=== PATIENT | male | born 1965 | race Caucasian/White ===

== ENCOUNTER 2023-05-12 13:06 | Inpatient (IN) | payer SELFPAY ==
[2023-05-12] VITALS (7 sets, daily range): BP systolic 144–178; BP diastolic 75–97; PULSE 64–67; RESP 16–20; O2SAT 94–98
[~2023-05-12] VITALS: Ht 182.9 cm; Wt 140.9 kg
[~2023-05-12 13:06] MED LIST: NORepinephrine bitart. inj. IV ONE; albumin (human) 25% 100 ML IV solution IV ONE; aminocaproic acid 250 MG/1 ML inj. ONE; calcium chloride 100 MG/1 ML inj IV ONE; heparin 1,000 units/ml 10ml inj ONE; heparin 10,000 units/1 ML INJ ONE; magnesium sulf 1 GM/2 ML ONE; mannitol 12.5gm/50mL VIAL IV ONE; methylPREDNISolone sod. succ. 500mg inj ONE; sodium bicarbonate (8.4%) 1 mEq/ml syringe ONE
[2023-05-12 14:03] LABS: BASOPHILS # (AUTO) 0.1 X10'3 (0-0.2); BASOPHILS % (AUTO) 0.8 % (0-1); EOSINOPHILS # (AUTO) 0.3 X10'3 (0-0.9); EOSINOPHILS % (AUTO) 4.4 % (0-6); HEMOGLOBIN 16.1 g/dl (14.0-17.9); LYMPHOCYTES # (AUTO) 1.8 X10'3 (1.1-4.8); LYMPHOCYTES % (AUTO) 23.3 % (21-51); MEAN CORPUSCULAR HGB CONC 34.3 g/dL (33.0-36.5); MEAN CORPUSCULAR VOLUME 81.6 FL (78-98); MEAN PLATELET VOLUME 7.4 FL (7.4-10.4); MONOCYTES # (AUTO) 0.8 X10'3 (0-0.9); MONOCYTES % (AUTO) 10.1 % (2-12); NEUTROPHILS # (AUTO) 4.9 X10'3 (1.8-7.7); NEUTROPHILS % (AUTO) 61.4 % (42-75); PLATELET COUNT 261 X10'3 (140-440); RED BLOOD COUNT 5.76 X10'6 (4.70-6.10); RED CELL DISTRIBUTION WIDTH 13.6 % (11.5-14.5); WHITE BLOOD COUNT 7.9 X10'3 (4.5-11.0)
[2023-05-12 14:53] LABS: ALANINE AMINOTRANSFERASE 32 U/L (12-78); ALBUMIN 3.9 G/DL (3.4-5.0); ALBUMIN/GLOBULIN RATIO 0.9 (1.1-1.5); ALKALINE PHOSPHATASE 89 IU/L (46-116); ANION GAP 9 (8-16); ASPARTATE AMINO TRANSFERASE 18 U/L (10-37); BILIRUBIN,TOTAL 0.5 MG/DL (0.1-1.0); BLOOD UREA NITROGEN 11 MG/DL (7-18); BUN/CREATININE RATIO 15.1 (10.0-20.0); CALCIUM 9.5 MG/DL (8.5-10.1); CHLORIDE 101 MMOL/L (99-107); CREATININE 0.73 MG/DL (0.60-1.10); GLUCOSE 202 MG/DL (70-104); POTASSIUM 3.8 MMOL/L (3.5-5.1); SODIUM 136 MMOL/L (135-145); TOTAL CARBON DIOXIDE 26.5 MMOL/L (24-32); TOTAL PROTEIN 8.2 G/DL (6.4-8.2); eCRCL 118 ML/MIN; eGFR > 90 ML/MIN
[2023-05-12 14:59] LABS: PRO BRAIN NATRIURETIC PEPTIDE 396 PG/ML (0-125)
[2023-05-12] MEDS ORDERED: aspirin 81mg tab.chew PO ONE ×2 (15:45→20:50)
[2023-05-12] MEDS ORDERED: nitroGLYCERIN 0.4mg/hour patch TD ONE (15:45)
[2023-05-12] MEDS ORDERED: heparin 10,000 units/1 ML INJ IV ONE ×2 (16:05→17:50)
[2023-05-12] MEDS ORDERED: heparin 25,000 UNIT/250ml bag 250 ML IV PRN ×2 (16:05→17:50)
[2023-05-12] MEDS ORDERED: metoprolol tartrate 50mg tablet PO ONE (17:30)
[2023-05-12] MEDS ORDERED: atorvastatin 20mg tablet PO ONE (17:30)
[2023-05-12] MEDS ORDERED: heparin 10,000 units/1 ML INJ IV PRN (17:50)
[2023-05-12] MEDS ORDERED: magnesium 2GM in 50ml NS 50 ML IV PRN ×2 (17:50→19:35)
[2023-05-12] MEDS ORDERED: mag hydrox/Alum hydrox/simeth 30ml oral suspension PO PRN (17:50)
[2023-05-12] MEDS ORDERED: PERFLUTREN PROTEIN-A MICROSPHR (Optison) 0.22 MG/ML 3ML VIAL IV ONE (17:50)
[2023-05-12] MEDS ORDERED: ondansetron/PF 4mg/2ml inj IV PRN (17:50)
[2023-05-12] MEDS ORDERED: magnesium hydroxide 30ml (MOM) UD suspension PO PRN ×2 (17:50→20:50)
[2023-05-12] MEDS ORDERED: HYDROcodone/acetaminophen 10/325mg tab PO PRN ×2 (17:50→20:50)
[2023-05-12] MEDS ORDERED: normal saline 1000ml 1,000 ML IV SCH ×2 (17:50→20:30)
[2023-05-12] MEDS ORDERED: HYDROmorphone inj. 0.5 MG/0.5 ML DISP.SYRIN IV PRN (17:50)
[2023-05-12] MEDS ORDERED: potassium Cl 40MEQ/1/2NS 520ml 520 ML IV PRN ×2 (17:50→19:35)
[2023-05-12] MEDS ORDERED: acetaminophen 325mg tablet PO PRN ×3 (17:50→21:00)
[2023-05-12] MEDS ORDERED: potassium Cl 20 mEq SR tablet PO PRN ×3 (17:50→19:35)
[2023-05-12] MEDS ORDERED: magnesium 4gm in 100ml NS 100 ML IV PRN ×2 (17:50→19:35)
[2023-05-12] MEDS ORDERED: HYDROcodone/acetaminophen 5mg/325mg tablet PO PRN (17:50)
[2023-05-12 18:07] LABS: APTT 26 SECONDS (22-32); PROTHROMBIN TIME 10.6 SECONDS (9.0-12.0)
[2023-05-12] MEDS ORDERED: hydrALAZINE 20mg/ml inj. IV PRN (18:10)
[2023-05-12] MEDS ORDERED: diphenhydrAMINE 50 mg/ml inj ONE (18:16)
[2023-05-12] MEDS ORDERED: metoprolol tartrate 1mg/ml inj IV ONE (18:23)
[2023-05-12] MEDS ORDERED: iohexol 350MG/ML 100ml bottle IV ONE ×2 (18:31→18:34)
[2023-05-12] MEDS ORDERED: LIDOcaine 1% 30ml preserv. free vial ONE (18:33)
[2023-05-12] MEDS ORDERED: midazolam 1 mg/ML 2ml injection ONE ×3 (18:33→19:21)
[2023-05-12] MEDS ORDERED: fentaNYL/PF 50MCG/1 ML 2ML syringe ONE (18:34)
[2023-05-12] MEDS ORDERED: iohexol 350 MG/ML 50ML vial IV ONE (18:45)
[2023-05-12] MEDS ORDERED: potassium Cl 40MEQ/270ML bag 250 ML IV PRN (19:35)
[2023-05-12] MEDS ORDERED: vancomycin/NS 1 GM ADD-VANTAGE 250 ML IV ONE (19:35)
[2023-05-12] MEDS ORDERED: potassium CL 10mEq/100ml bag 100 ML IV PRN (19:35)
[2023-05-12] MEDS ORDERED: MESSAGE TO NURSING PO ONE ×4 (19:35)
[2023-05-12] MEDS ORDERED: potassium Cl 20mEq/100mL bag 100 ML IV PRN (19:35)
[2023-05-12] MEDS ORDERED: cefazolin/dext.iso 2gm/50ml 50 ML IV ONE (19:35)
[2023-05-12] MEDS: K and/or MAG REPLACEMENT MC SCH (20:00)
[2023-05-12] MEDS ORDERED: docusate sod 100mg capsule PO SCH (20:00)
[2023-05-12] MEDS ORDERED: cefazolin 2gm/D5W 100mL 100 ML IV ONE (20:15)
[2023-05-12] MEDS: normal saline 1000ml 1,000 ML IV SCH (20:35)
[2023-05-12] MEDS ORDERED: nitroGLYCERIN 0.4mg SUBLingual tab SL PRN (20:35)
[2023-05-12] MEDS ORDERED: morphine 4 MG/ML inj SYRINge IV PRN (20:35)
[2023-05-12] MEDS ORDERED: HYDROmorphone 1 mg/ml syringe IV ONE (20:40)
[2023-05-12] MEDS ORDERED: niCARDipine-NS 40mg/200ml IVPB 200 ML IV PRN (20:40)
[2023-05-12] MEDS ORDERED: lisinopril 5mg tablet PO ONE (20:40)
[2023-05-12] MEDS ORDERED: cyclobenzaprine 10mg tablet PO PRN (20:50)
[2023-05-12] MEDS ORDERED: proCHLORperazine 10 MG/2 ml inj IV PRN (20:50)
[2023-05-12] MEDS ORDERED: nitroGLYCERIN-Tridil 50MG/D5W 250 ML IV SCH (20:50)
[2023-05-12] MEDS ORDERED: LidoCAINE 2% Topical Jelly 11mL syringe MM ONE (21:05)
[2023-05-12] MEDS: HYDROmorphone/PF 0.2 MG/ML SYRINGE IV PRN (21:33)
[2023-05-12 23:32] LABS: ABG BASE EXCESS 0.7 mmol/L (-2.0-2.0); ABG HCO3 24.5 mmol/L (22.0-26.0); ABG OXYGEN SATURATION 95.9 % (94-97); ABG PCO2 (T) 36.4 mmHg (35.0-48.0); ABG PH (T) 7.444 (7.340-7.440); ABG PO2 (T) 73.8 mmHg (75.0-100.0); ALLEN'S TEST POSITIVE; FCOHb 0.8 % (0.0-3.9); FHHb 4.1 % (0.0-5.0); FMetHb 0.3 % (0.0-1.5); FO2Hb 94.8 % (94-97); MODE ROOM AIR; PATIENT TEMPERATURE 36.7; TOTAL HEMOGLOBIN 15.5 G/dl (14.0-17.9)
[2023-05-12] MEDS ORDERED: metoprolol tartrate 25mg tablet PO ONE (23:40)
[2023-05-13] VITALS (27 sets, daily range): BP systolic 116–168; BP diastolic 62–95; PULSE 54–79; RESP 12–21; O2SAT 90–96
[2023-05-13] MEDS: OXAZEpam 15mg capsule PO PRN ×3 (00:38→21:09)
[2023-05-13] MEDS: Insulin Reg/NS 100units/100mL 100 ML IV SCH (01:55)
[2023-05-13] MEDS ORDERED: dextrose 50%-water 50ml dispensing syringe IV PRN (01:55)
[2023-05-13] MEDS: HYDROmorphone/PF 0.2 MG/ML SYRINGE IV PRN (02:45)
[2023-05-13] MEDS ORDERED: niCARDipine-NS 40mg/200ml IVPB 200 ML IV PRN (05:30)
[2023-05-13 06:17] LABS: BASOPHILS % (AUTO) 0.5 % (0-1); EOSINOPHILS # (AUTO) 0.3 X10'3 (0-0.9); HEMATOCRIT 43.7 % (42.0-52.0); HEMOGLOBIN 14.9 g/dl (14.0-17.9); LYMPHOCYTES % (AUTO) 22.8 % (21-51); MEAN CORPUSCULAR HEMOGLOBIN 27.7 PG (27.0-31.0); MEAN CORPUSCULAR VOLUME 81.5 FL (78-98); MEAN PLATELET VOLUME 7.6 FL (7.4-10.4); MONOCYTES # (AUTO) 0.9 X10'3 (0-0.9); MONOCYTES % (AUTO) 10.4 % (2-12); NEUTROPHILS # (AUTO) 5.4 X10'3 (1.8-7.7); NEUTROPHILS % (AUTO) 63.3 % (42-75); PLATELET COUNT 228 X10'3 (140-440); RED BLOOD COUNT 5.36 X10'6 (4.70-6.10); RED CELL DISTRIBUTION WIDTH 13.8 % (11.5-14.5); WHITE BLOOD COUNT 8.6 X10'3 (4.5-11.0)
[2023-05-13 06:20] LABS: ALANINE AMINOTRANSFERASE 26 U/L (12-78); ALBUMIN 3.3 G/DL (3.4-5.0); ALBUMIN/GLOBULIN RATIO 0.9 (1.1-1.5); ALKALINE PHOSPHATASE 72 IU/L (46-116); ANION GAP 7 (8-16); ASPARTATE AMINO TRANSFERASE 19 U/L (10-37); BILIRUBIN,TOTAL 0.7 MG/DL (0.1-1.0); BLOOD UREA NITROGEN 7 MG/DL (7-18); CALCIUM 8.6 MG/DL (8.5-10.1); CHLORIDE 105 MMOL/L (99-107); CHOL/HDL RATIO 4.9 (0.00-4.99); CHOLESTEROL 206 MG/DL (0-200); GLUCOSE 174 MG/DL (70-104); HDL CHOLESTEROL 42 MG/DL (35-60); LDL CHOLESTEROL 143 MG/DL (50-100); MAGNESIUM 1.8 MG/DL (1.5-2.4); POTASSIUM 3.9 MMOL/L (3.5-5.1); SODIUM 139 MMOL/L (135-145); TOTAL CARBON DIOXIDE 26.7 MMOL/L (24-32); TOTAL PROTEIN 6.9 G/DL (6.4-8.2); TRIGLYCERIDES 122 MG/DL (20-135); eCRCL 123 ML/MIN; eGFR > 90 ML/MIN
[2023-05-13] MEDS ORDERED: heparin 10,000 units/1 ML INJ IJ SCH (08:00)
[2023-05-13] MEDS: K and/or MAG REPLACEMENT MC SCH ×2 (08:00→20:00)
[2023-05-13] MEDS ORDERED: lisinopril 10 MG tablet PO SCH (08:00)
[2023-05-13] MEDS ORDERED: heparin 25,000 UNIT/250ml bag 250 ML IV PRN ×2 (08:30→08:55)
[2023-05-13] MEDS ORDERED: heparin 10,000 units/1 ML INJ IV ONE (08:55)
[2023-05-13] MEDS: docusate sod 100mg capsule PO SCH ×2 (09:41→21:09)
[2023-05-13] MEDS: aspirin 81mg tab.chew PO SCH (09:42)
[2023-05-13] MEDS: normal saline 1000ml 1,000 ML IV SCH ×2 (09:49→21:52)
[2023-05-13] MEDS ORDERED: MESSAGE TO NURSING PO ONE (10:00)
[2023-05-13] MEDS ORDERED: NO HOME MEDS (10:22)
[2023-05-13] MEDS: heparin 10,000 units/1 ML INJ IV PRN (17:52)
[2023-05-14] VITALS (28 sets, daily range): BP systolic 80–170; BP diastolic 50–100; PULSE 65–86; RESP 14–18; O2SAT 92–100
[2023-05-14] MEDS: heparin 10,000 units/1 ML INJ IV PRN (00:15)
[2023-05-14] MEDS: HYDROmorphone/PF 0.2 MG/ML SYRINGE IV PRN (01:40)
[2023-05-14 03:15] LABS: ALANINE AMINOTRANSFERASE 24 U/L (12-78); ALBUMIN 3.3 G/DL (3.4-5.0); ALBUMIN/GLOBULIN RATIO 0.8 (1.1-1.5); ALKALINE PHOSPHATASE 76 IU/L (46-116); ANION GAP 8 (8-16); ASPARTATE AMINO TRANSFERASE 17 U/L (10-37); BILIRUBIN,TOTAL 0.7 MG/DL (0.1-1.0); BLOOD UREA NITROGEN 8 MG/DL (7-18); BUN/CREATININE RATIO 12.7 (10.0-20.0); CHLORIDE 105 MMOL/L (99-107); CREATININE 0.63 MG/DL (0.60-1.10); GLUCOSE 184 MG/DL (70-104); MAGNESIUM 1.9 MG/DL (1.5-2.4); POTASSIUM 3.8 MMOL/L (3.5-5.1); SODIUM 139 MMOL/L (135-145); TOTAL CARBON DIOXIDE 26.2 MMOL/L (24-32); TOTAL PROTEIN 7.2 G/DL (6.4-8.2); eCRCL 137 ML/MIN; eGFR > 90 ML/MIN
[2023-05-14 03:26] LABS: BASOPHILS # (AUTO) 0.1 X10'3 (0-0.2); BASOPHILS % (AUTO) 0.6 % (0-1); EOSINOPHILS # (AUTO) 0.3 X10'3 (0-0.9); EOSINOPHILS % (AUTO) 3.5 % (0-6); HEMATOCRIT 44.8 % (42.0-52.0); LYMPHOCYTES % (AUTO) 21.8 % (21-51); MEAN CORPUSCULAR HEMOGLOBIN 27.4 PG (27.0-31.0); MEAN CORPUSCULAR HGB CONC 33.6 g/dL (33.0-36.5); MEAN CORPUSCULAR VOLUME 81.5 FL (78-98); MEAN PLATELET VOLUME 7.8 FL (7.4-10.4); MONOCYTES # (AUTO) 0.9 X10'3 (0-0.9); NEUTROPHILS # (AUTO) 5.8 X10'3 (1.8-7.7); NEUTROPHILS % (AUTO) 64.1 % (42-75); PLATELET COUNT 203 X10'3 (140-440); RED CELL DISTRIBUTION WIDTH 13.6 % (11.5-14.5); WHITE BLOOD COUNT 9.1 X10'3 (4.5-11.0)
[2023-05-14 04:28] LABS: APTT 54 SECONDS (22-32)
[2023-05-14] MEDS ORDERED: ceFAZolin inj. 3,000 MG in normal saline 100ml IV soln 100 ML IV ONE (05:30)
[2023-05-14] MEDS ORDERED: vancomycin 1,500 MG in NS 300ml IV soln IV ONE (05:30)
[2023-05-14] MEDS ORDERED: nitroGLYCERIN-Tridil 50MG/D5W 250 ML IV SCH (05:30)
[2023-05-14] MEDS ORDERED: niCARDipine-NS 40mg/200ml IVPB 200 ML IV PRN ×2 (05:30→13:15)
[2023-05-14] MEDS ORDERED: famotidine 20mg tablet PO ONE (06:00)
[2023-05-14] MEDS ORDERED: midazolam 1 mg/ML 2ml injection IV ONE (06:00)
[2023-05-14] MEDS ORDERED: vancomycin 1,000mg inj ONE ×2 (06:35→12:18)
[2023-05-14] MEDS ORDERED: epiNEPHrine 1 mg/ml inj ONE (06:35)
[2023-05-14] MEDS ORDERED: BUPIVAcaine 0.5% inj/PF 60 ML ONE (06:35)
[2023-05-14] MEDS ORDERED: ceFAZolin 1000mg inj ONE (06:35)
[2023-05-14] MEDS ORDERED: metoprolol tartrate 12.5mg (1/2 tablet) PO ONE (07:10)
[2023-05-14] MEDS ORDERED: SUfentanil 50mcg/ml 1ml amp IV ONE ×2 (07:39)
[2023-05-14] MEDS ORDERED: MIDAZolam 1 MG/ML 5ML VIAL ONE (07:39)
[2023-05-14] MEDS ORDERED: rocuronium 10mg/ml inj IV ONE ×3 (07:41→11:43)
[2023-05-14] MEDS ORDERED: propofol inj 20 ML IV ONE (07:43)
[2023-05-14] MEDS: K and/or MAG REPLACEMENT MC SCH (08:00)
[2023-05-14] MEDS: docusate sod 100mg capsule PO SCH (08:00)
[2023-05-14] MEDS: aspirin 81mg tab.chew PO SCH (08:00)
[2023-05-14] MEDS ORDERED: BUPIVAcaine 0.5% inj/PF 30 ml vial IJ ONE (09:34)
[2023-05-14] MEDS ORDERED: papaverine 30 mg/ml 2ml inj. IA ONE (09:35)
[2023-05-14] MEDS ORDERED: heparin 10,000 units/1 ML INJ IR ONE (09:35)
[2023-05-14 09:57] LABS: ABG BASE EXCESS VENOUS -4.8 mmol/L (-2.0 - 2.0); ABG HCO3 VENOUS 22.5 mmol/L (21.0-28.0); ABG OXYGEN SATURATION VENOUS 75.9 % (75 - 99 %); ABG PCO2 VENOUS 50.1 mmHg (41.0-54.0); ABG PO2 VENOUS 40.7 mmHg (25.0-35.0); CL (ABG) 104 mmol/L (99-107); FCOHb VENOUS 0.5 %; FHHb VENOUS 23.9 %; FMetHb VENOUS 0.3 % (0.0 - 0.5); FO2Hb VENOUS 75.3 %; GLUCOSE (ABG) 168 mg/dl (70-104); IONIZED CA (ABG) 1.16 mmol/L (1.10-1.30); TOTAL HEMOGLOBIN 15.2 G/dl (14.0-17.9)
[2023-05-14 10:31] LABS: ABG BASE EXCESS VENOUS -1.7 mmol/L (-2.0 - 2.0); ABG HCO3 VENOUS 23.7 mmol/L (21.0-28.0); ABG OXYGEN SATURATION VENOUS 84.7 % (75 - 99 %); ABG PCO2 VENOUS 43.2 mmHg (41.0-54.0); ABG PH (VENOUS) 7.358 (7.310-7.450); CL (ABG) 102 mmol/L (99-107); FCOHb VENOUS 0.1 %; FHHb VENOUS 15.2 %; FMetHb VENOUS 0.3 % (0.0 - 0.5); FO2Hb VENOUS 84.4 %; GLUCOSE (ABG) 168 mg/dl (70-104); IONIZED CA (ABG) 0.98 mmol/L (1.10-1.30); K (ABG) 3.9 mmol/L (3.5-5.1); TOTAL HEMOGLOBIN 12.2 G/dl (14.0-17.9)
[2023-05-14 10:36] LABS: ABG BASE EXCESS -1.3 mmol/L (-2.0-2.0); ABG OXYGEN SATURATION 99.4 % (94-97); ABG PCO2 42.5 mmHg (35.0-48.0); ABG PH 7.369 (7.340-7.440); CL (ABG) 103 mmol/L (99-107); FCOHb 0.3 % (0.0-3.9); FHHb 0.6 % (0.0-5.0); FMetHb 0.3 % (0.0-1.5); FO2Hb 98.8 % (94-97); GLUCOSE (ABG) 169 mg/dl (70-104); IONIZED CA (ABG) 1.05 mmol/L (1.10-1.30); K (ABG) 3.7 mmol/L (3.5-5.1); TOTAL HEMOGLOBIN 12.5 G/dl (14.0-17.9)
[2023-05-14 11:03] LABS: ABG BASE EXCESS -3.6 mmol/L (-2.0-2.0); ABG HCO3 22.2 mmol/L (22.0-26.0); ABG OXYGEN SATURATION 99.1 % (94-97); ABG PCO2 42.7 mmHg (35.0-48.0); ABG PH 7.333 (7.340-7.440); ABG PO2 269.3 mmHg (75.0-100.0); CL (ABG) 104 mmol/L (99-107); FCOHb 0.3 % (0.0-3.9); FHHb 0.9 % (0.0-5.0); FMetHb 0.3 % (0.0-1.5); FO2Hb 98.5 % (94-97); GLUCOSE (ABG) 175 mg/dl (70-104); IONIZED CA (ABG) 1.09 mmol/L (1.10-1.30); K (ABG) 4.2 mmol/L (3.5-5.1); TOTAL HEMOGLOBIN 13.3 G/dl (14.0-17.9)
[2023-05-14] MEDS: Insulin Reg/NS 100units/100mL 100 ML IV SCH ×3 (11:15→22:11)
[2023-05-14 11:26] LABS: ABG BASE EXCESS -3.6 mmol/L (-2.0-2.0); ABG HCO3 21.8 mmol/L (22.0-26.0); ABG OXYGEN SATURATION 99.1 % (94-97); ABG PCO2 40.9 mmHg (35.0-48.0); ABG PH 7.345 (7.340-7.440); ABG PO2 266.9 mmHg (75.0-100.0); CL (ABG) 103 mmol/L (99-107); FCOHb 0.2 % (0.0-3.9); FHHb 0.9 % (0.0-5.0); FMetHb 0.3 % (0.0-1.5); FO2Hb 98.6 % (94-97); GLUCOSE (ABG) 189 mg/dl (70-104); IONIZED CA (ABG) 1.09 mmol/L (1.10-1.30); K (ABG) 4.3 mmol/L (3.5-5.1); TOTAL HEMOGLOBIN 13.4 G/dl (14.0-17.9)
[2023-05-14 11:43] LABS: ABG BASE EXCESS -1.4 mmol/L (-2.0-2.0); ABG HCO3 24.4 mmol/L (22.0-26.0); ABG OXYGEN SATURATION 98.9 % (94-97); ABG PCO2 45.2 mmHg (35.0-48.0); ABG PO2 228.7 mmHg (75.0-100.0); CL (ABG) 104 mmol/L (99-107); FCOHb 0.3 % (0.0-3.9); FHHb 1.1 % (0.0-5.0); FMetHb 0.3 % (0.0-1.5); FO2Hb 98.3 % (94-97); GLUCOSE (ABG) 199 mg/dl (70-104); K (ABG) 4.2 mmol/L (3.5-5.1); TOTAL HEMOGLOBIN 13.1 G/dl (14.0-17.9)
[2023-05-14 12:01] LABS: ABG BASE EXCESS VENOUS -2.7 mmol/L (-2.0 - 2.0); ABG HCO3 VENOUS 23.6 mmol/L (21.0-28.0); ABG OXYGEN SATURATION VENOUS 78.1 % (75 - 99 %); ABG PH (VENOUS) 7.319 (7.310-7.450); ABG PO2 VENOUS 44.1 mmHg (25.0-35.0); CL (ABG) 104 mmol/L (99-107); FCOHb VENOUS 0.5 %; FHHb VENOUS 21.7 %; FMetHb VENOUS 0.3 % (0.0 - 0.5); FO2Hb VENOUS 77.5 %; GLUCOSE (ABG) 187 mg/dl (70-104); IONIZED CA (ABG) 1.23 mmol/L (1.10-1.30); TOTAL HEMOGLOBIN 13.6 G/dl (14.0-17.9)
[2023-05-14 12:03] LABS: ACTIVATED CLOTTING TIME 130 SEC (101-148)
[2023-05-14] MEDS ORDERED: mineral oil 133ml enema RC PRN (13:15)
[2023-05-14] MEDS ORDERED: Neutra Phos packet PO PRN (13:15)
[2023-05-14] MEDS ORDERED: sodium phosphate inj. 15 MMOL in dextrose 5%-water 250 ML IV PRN (13:15)
[2023-05-14] MEDS ORDERED: magnesium 4gm in 100ml NS 100 ML IV PRN (13:15)
[2023-05-14] MEDS ORDERED: acetaminophen 325mg tablet PO PRN ×2 (13:15)
[2023-05-14] MEDS ORDERED: magnesium 2GM in 50ml NS 50 ML IV PRN (13:15)
[2023-05-14] MEDS ORDERED: metoclopramide 5 mg/ml inj IV PRN (13:15)
[2023-05-14] MEDS ORDERED: potassium Cl 20 mEq SR tablet PO PRN (13:15)
[2023-05-14] MEDS ORDERED: potassium Cl 40MEQ/270ML bag 250 ML IV PRN (13:15)
[2023-05-14] MEDS ORDERED: bisacodyl 10mg suppository rectal RC PRN (13:15)
[2023-05-14] MEDS ORDERED: potassium Cl 40MEQ/1/2NS 520ml 520 ML IV PRN (13:15)
[2023-05-14] MEDS: NORepinephrine 8mg/ 250ml NS 250 ML IV SCH (13:15)
[2023-05-14] MEDS ORDERED: insulin glargine (Lantus) pen - multi-dose SQ PRN (13:15)
[2023-05-14] MEDS ORDERED: magnesium hydroxide 30ml (MOM) UD suspension PO PRN (13:15)
[2023-05-14] MEDS ORDERED: normal saline 250ml IV soln 250 ML IV PRN (13:15)
[2023-05-14] MEDS ORDERED: dextrose 50%-water 50ml dispensing syringe IV PRN (13:15)
[2023-05-14] MEDS: sodium chloride 0.45% 1,000 ML IV SCH (13:15)
[2023-05-14] MEDS ORDERED: potassium CL 10mEq/100ml bag 100 ML IV PRN (13:15)
[2023-05-14] MEDS ORDERED: sodium phosphate inj. 30 MMOL in dextrose 5%-water 250 ML IV PRN (13:15)
[2023-05-14] MEDS ORDERED: ondansetron/PF 4mg/2ml inj IV PRN (13:15)
[2023-05-14 13:24] LABS: ABG HCO3 23.4 mmol/L (22.0-26.0); ABG OXYGEN SATURATION 97.4 % (94-97); ABG PCO2 (T) 42.5 mmHg (35.0-48.0); ABG PH (T) 7.359 (7.340-7.440); ABG PO2 (T) 96.4 mmHg (75.0-100.0); FCOHb 0.8 % (0.0-3.9); FHHb 2.6 % (0.0-5.0); FMetHb 0.3 % (0.0-1.5); FO2Hb 96.3 % (94-97); MODE VENT - SIMV/VC; PATIENT TEMPERATURE 37.2; PEEP 5 cm H2O; RESPIRATORY RATE 14 b/min; TIDAL VOLUME 700 mL; TOTAL HEMOGLOBIN 13.9 G/dl (14.0-17.9)
[2023-05-14 13:28] LABS: BASOPHILS % (AUTO) 0.2 % (0-1); EOSINOPHILS # (AUTO) 0.1 X10'3 (0-0.9); EOSINOPHILS % (AUTO) 0.6 % (0-6); HEMOGLOBIN 12.4 g/dl (14.0-17.9); LYMPHOCYTES # (AUTO) 0.7 X10'3 (1.1-4.8); LYMPHOCYTES % (AUTO) 4.7 % (21-51); MEAN CORPUSCULAR HEMOGLOBIN 27.4 PG (27.0-31.0); MEAN CORPUSCULAR HGB CONC 33.5 g/dL (33.0-36.5); MEAN CORPUSCULAR VOLUME 81.8 FL (78-98); MEAN PLATELET VOLUME 7.3 FL (7.4-10.4); MONOCYTES % (AUTO) 6.4 % (2-12); NEUTROPHILS # (AUTO) 13.7 X10'3 (1.8-7.7); NEUTROPHILS % (AUTO) 88.1 % (42-75); PLATELET COUNT 180 X10'3 (140-440); RED BLOOD COUNT 4.52 X10'6 (4.70-6.10); RED CELL DISTRIBUTION WIDTH 13.3 % (11.5-14.5); WHITE BLOOD COUNT 15.6 X10'3 (4.5-11.0)
[2023-05-14 13:42] LABS: APTT 30 SECONDS (22-32); INR 1.1 INR; PROTHROMBIN TIME 12.1 SECONDS (9.0-12.0)
[2023-05-14 13:44] LABS: ALANINE AMINOTRANSFERASE 16 U/L (12-78); ALBUMIN 2.7 G/DL (3.4-5.0); ALKALINE PHOSPHATASE 51 IU/L (46-116); ANION GAP 9 (8-16); ASPARTATE AMINO TRANSFERASE 23 U/L (10-37); BILIRUBIN,TOTAL 0.7 MG/DL (0.1-1.0); BLOOD UREA NITROGEN 7 MG/DL (7-18); BUN/CREATININE RATIO 8.8 (10.0-20.0); CALCIUM 7.5 MG/DL (8.5-10.1); CHLORIDE 111 MMOL/L (99-107); GLUCOSE 183 MG/DL (70-104); MAGNESIUM 2.2 MG/DL (1.5-2.4); PHOSPHORUS 3.4 MG/DL (2.3-4.5); POTASSIUM 3.6 MMOL/L (3.5-5.1); SODIUM 143 MMOL/L (135-145); TOTAL CARBON DIOXIDE 22.7 MMOL/L (24-32); TOTAL PROTEIN 5.3 G/DL (6.4-8.2); eCRCL 108 ML/MIN; eGFR > 90 ML/MIN
[2023-05-14] MEDS: morphine 4 MG/ML inj SYRINge IV PRN ×2 (13:59→17:31)
[2023-05-14] MEDS: albumin (Human) 5% 250ml 250 ML IV PRN ×3 (13:59→19:17)
[2023-05-14] MEDS: propofol 1000mg/100ml bottle 100 ML IV SCH ×2 (14:00→19:17)
[2023-05-14] MEDS: nitroGLYCERIN-Tridil 50MG/D5W 250 ML IV SCH (14:24)
[2023-05-14] MEDS: potassium Cl 20mEq/100mL bag 100 ML IV PRN ×3 (15:32→17:28)
[2023-05-14] MEDS: dexmedetomidin/NS 400mcg/100ml 100 ML IV SCH ×2 (15:42→19:02)
[2023-05-14] MEDS: ceFAZolin/D5W- 1GM premix 50 ML IV SCH (16:26)
[2023-05-14 19:14] LABS: BASOPHILS % (AUTO) 0 % (0-1); EOSINOPHILS % (AUTO) 0 % (0-6); HEMATOCRIT 36.8 % (42.0-52.0); HEMOGLOBIN 12.2 g/dl (14.0-17.9); LYMPHOCYTES # (AUTO) 0.7 X10'3 (1.1-4.8); MEAN CORPUSCULAR HEMOGLOBIN 27.1 PG (27.0-31.0); MEAN CORPUSCULAR HGB CONC 33.1 g/dL (33.0-36.5); MEAN CORPUSCULAR VOLUME 81.8 FL (78-98); MEAN PLATELET VOLUME 7.6 FL (7.4-10.4); MONOCYTES # (AUTO) 0.8 X10'3 (0-0.9); MONOCYTES % (AUTO) 4.5 % (2-12); NEUTROPHILS # (AUTO) 16.7 X10'3 (1.8-7.7); NEUTROPHILS % (AUTO) 91.5 % (42-75); PLATELET COUNT 245 X10'3 (140-440); RED CELL DISTRIBUTION WIDTH 13.8 % (11.5-14.5); WHITE BLOOD COUNT 18.2 X10'3 (4.5-11.0)
[2023-05-14 19:21] LABS: ALBUMIN 3.2 G/DL (3.4-5.0); ANION GAP 8 (8-16); BLOOD UREA NITROGEN 10 MG/DL (7-18); BUN/CREATININE RATIO 11.9 (10.0-20.0); CALCIUM 8.1 MG/DL (8.5-10.1); CHLORIDE 109 MMOL/L (99-107); CREATININE 0.84 MG/DL (0.60-1.10); GLUCOSE 209 MG/DL (70-104); MAGNESIUM 2.8 MG/DL (1.5-2.4); PHOSPHORUS 2.9 MG/DL (2.3-4.5); POTASSIUM 4.5 MMOL/L (3.5-5.1); SODIUM 139 MMOL/L (135-145); TOTAL CARBON DIOXIDE 21.7 MMOL/L (24-32); eCRCL 103 ML/MIN; eGFR > 90 ML/MIN
[2023-05-14] MEDS ORDERED: albumin (Human) 5% 250ml 250 ML IV ONE ×3 (20:05→22:55)
[2023-05-14] MEDS: sennosides/docusate sodium tablet PO SCH (20:07)
[2023-05-14] MEDS: atorvastatin 10mg tablet PO SCH (20:07)
[2023-05-14] MEDS: mupirocin 2% nasal ointment 1gm UD NS SCH (20:08)
[2023-05-14] MEDS: vancomycin/NS 1 GM ADD-VANTAGE 250 ML IV SCH (20:08)
[2023-05-14] MEDS: HYDROcodone/acetaminophen 10/325mg tab PO PRN (20:08)
[2023-05-15] VITALS (31 sets, daily range): BP systolic 78–130; BP diastolic 34–71; PULSE 59–73; RESP 14–25; O2SAT 91–99
[2023-05-15] MEDS: NORepinephrine 8mg/ 250ml NS 250 ML IV SCH ×3 (00:46→19:38)
[2023-05-15 01:33] LABS: BASOPHILS % (AUTO) 0.1 % (0-1); EOSINOPHILS % (AUTO) 0 % (0-6); HEMATOCRIT 31.1 % (42.0-52.0); HEMOGLOBIN 10.5 g/dl (14.0-17.9); LYMPHOCYTES # (AUTO) 0.8 X10'3 (1.1-4.8); LYMPHOCYTES % (AUTO) 7.2 % (21-51); MEAN CORPUSCULAR HEMOGLOBIN 27.7 PG (27.0-31.0); MEAN CORPUSCULAR HGB CONC 33.9 g/dL (33.0-36.5); MEAN CORPUSCULAR VOLUME 81.9 FL (78-98); MEAN PLATELET VOLUME 7.8 FL (7.4-10.4); MONOCYTES # (AUTO) 0.9 X10'3 (0-0.9); NEUTROPHILS # (AUTO) 9.3 X10'3 (1.8-7.7); NEUTROPHILS % (AUTO) 84.7 % (42-75); PLATELET COUNT 166 X10'3 (140-440); RED CELL DISTRIBUTION WIDTH 13.3 % (11.5-14.5)
[2023-05-15 01:35] LABS: ALANINE AMINOTRANSFERASE 22 U/L (12-78); ALBUMIN 3.5 G/DL (3.4-5.0); ALBUMIN/GLOBULIN RATIO 1.5 (1.1-1.5); ALKALINE PHOSPHATASE 43 IU/L (46-116); ANION GAP 9 (8-16); ASPARTATE AMINO TRANSFERASE 24 U/L (10-37); BILIRUBIN,TOTAL 0.4 MG/DL (0.1-1.0); BLOOD UREA NITROGEN 11 MG/DL (7-18); BUN/CREATININE RATIO 13.3 (10.0-20.0); CALCIUM 8.1 MG/DL (8.5-10.1); CHLORIDE 109 MMOL/L (99-107); CREATININE 0.83 MG/DL (0.60-1.10); GLUCOSE 113 MG/DL (70-104); MAGNESIUM 2.6 MG/DL (1.5-2.4); PHOSPHORUS 2.4 MG/DL (2.3-4.5); POTASSIUM 3.9 MMOL/L (3.5-5.1); SODIUM 141 MMOL/L (135-145); TOTAL CARBON DIOXIDE 22.9 MMOL/L (24-32); TOTAL PROTEIN 5.9 G/DL (6.4-8.2); eCRCL 104 ML/MIN; eGFR > 90 ML/MIN
[2023-05-15] MEDS: propofol 1000mg/100ml bottle 100 ML IV SCH (02:12)
[2023-05-15] MEDS: HYDROcodone/acetaminophen 10/325mg tab PO PRN ×5 (03:22→20:16)
[2023-05-15] MEDS: dexmedetomidin/NS 400mcg/100ml 100 ML IV SCH ×2 (03:52→07:00)
[2023-05-15 03:54] LABS: ABG BASE EXCESS -3.4 mmol/L (-2.0-2.0); ABG HCO3 20.6 mmol/L (22.0-26.0); ABG OXYGEN SATURATION 95.2 % (94-97); ABG PCO2 (T) 34.2 mmHg (35.0-48.0); ABG PO2 (T) 74.5 mmHg (75.0-100.0); FCOHb 0.3 % (0.0-3.9); FHHb 4.8 % (0.0-5.0); FMetHb 0.3 % (0.0-1.5); FO2Hb 94.6 % (94-97); MODE VENT - SIMV; PATIENT TEMPERATURE 37.6; PEEP 5 cm H2O; RESPIRATORY RATE 14 b/min; TIDAL VOLUME 700 mL; TOTAL HEMOGLOBIN 11.1 G/dl (14.0-17.9)
[2023-05-15] MEDS: ceFAZolin/D5W- 1GM premix 50 ML IV SCH ×3 (06:56→15:31)
[2023-05-15] MEDS ORDERED: insulin Lispro (HumaLOG) vial - multi-dose SQ SCH (07:00)
[2023-05-15] MEDS: sennosides/docusate sodium tablet PO SCH ×2 (07:03→20:16)
[2023-05-15] MEDS: mupirocin 2% nasal ointment 1gm UD NS SCH ×2 (07:03→20:16)
[2023-05-15] MEDS: aspirin 81mg tab.chew PO SCH (07:03)
[2023-05-15] MEDS: metoprolol tartrate 12.5mg (1/2 tablet) PO SCH ×2 (07:04→20:00)
[2023-05-15] MEDS: vancomycin/NS 1 GM ADD-VANTAGE 250 ML IV SCH ×2 (07:33→20:15)
[2023-05-15] MEDS: insulin Lispro (HumaLOG) vial - multi-dose SQ PRN ×2 (08:02→18:46)
[2023-05-15] MEDS: insulin glargine (Lantus) pen - multi-dose SQ SCH (08:06)
[2023-05-15] MEDS ORDERED: albumin (Human) 5% 250ml 250 ML IV ONE ×2 (11:15→12:00)
[2023-05-15 11:24] LABS: HEMATOCRIT 30.1 % (42.0-52.0); MEAN CORPUSCULAR HEMOGLOBIN 27.2 PG (27.0-31.0); MEAN CORPUSCULAR HGB CONC 33.2 g/dL (33.0-36.5); MEAN CORPUSCULAR VOLUME 82.1 FL (78-98); PLATELET COUNT 151 X10'3 (140-440); RED BLOOD COUNT 3.66 X10'6 (4.70-6.10); RED CELL DISTRIBUTION WIDTH 13.3 % (11.5-14.5); WHITE BLOOD COUNT 12.7 X10'3 (4.5-11.0)
[2023-05-15] MEDS: heparin, porcine 5000 units/ml vial SQ SCH (15:28)
[2023-05-15] MEDS: morphine 2 MG/ML inj. syringe IV PRN (19:11)
[2023-05-15] MEDS: atorvastatin 10mg tablet PO SCH (20:16)
[2023-05-15] MEDS: Insulin Reg/NS 100units/100mL 100 ML IV SCH (22:35)
[2023-05-16] VITALS (24 sets, daily range): BP systolic 102–159; BP diastolic 44–81; PULSE 62–87; RESP 13–24; O2SAT 90–99
[2023-05-16] MEDS: heparin, porcine 5000 units/ml vial SQ SCH ×3 (00:24→16:29)
[2023-05-16] MEDS: ceFAZolin/D5W- 1GM premix 50 ML IV SCH (00:25)
[2023-05-16] MEDS: HYDROcodone/acetaminophen 10/325mg tab PO PRN ×5 (00:25→20:40)
[2023-05-16 02:19] LABS: BASOPHILS % (AUTO) 0.2 % (0-1); EOSINOPHILS % (AUTO) 0 % (0-6); HEMATOCRIT 27.5 % (42.0-52.0); HEMOGLOBIN 9.2 g/dl (14.0-17.9); LYMPHOCYTES % (AUTO) 13.2 % (21-51); MEAN CORPUSCULAR HEMOGLOBIN 27.4 PG (27.0-31.0); MEAN CORPUSCULAR HGB CONC 33.3 g/dL (33.0-36.5); MEAN CORPUSCULAR VOLUME 82.4 FL (78-98); MEAN PLATELET VOLUME 7.7 FL (7.4-10.4); MONOCYTES % (AUTO) 13.5 % (2-12); NEUTROPHILS # (AUTO) 11.1 X10'3 (1.8-7.7); NEUTROPHILS % (AUTO) 73.1 % (42-75); PLATELET COUNT 142 X10'3 (140-440); RED BLOOD COUNT 3.34 X10'6 (4.70-6.10); RED CELL DISTRIBUTION WIDTH 13.9 % (11.5-14.5); WHITE BLOOD COUNT 15.1 X10'3 (4.5-11.0)
[2023-05-16 02:48] LABS: ALBUMIN 3.2 G/DL (3.4-5.0); ANION GAP 8 (8-16); BLOOD UREA NITROGEN 20 MG/DL (7-18); CALCIUM 7.9 MG/DL (8.5-10.1); CHLORIDE 107 MMOL/L (99-107); CREATININE 0.87 MG/DL (0.60-1.10); GLUCOSE 167 MG/DL (70-104); MAGNESIUM 2.4 MG/DL (1.5-2.4); PHOSPHORUS 3.3 MG/DL (2.3-4.5); POTASSIUM 4.1 MMOL/L (3.5-5.1); SODIUM 138 MMOL/L (135-145); TOTAL CARBON DIOXIDE 23.1 MMOL/L (24-32); eCRCL 99 ML/MIN; eGFR 90 ML/MIN
[2023-05-16] MEDS: morphine 2 MG/ML inj. syringe IV PRN (04:06)
[2023-05-16] MEDS: potassium Cl 20mEq/100mL bag 100 ML IV PRN (04:57)
[2023-05-16] MEDS: NORepinephrine 8mg/ 250ml NS 250 ML IV SCH ×2 (05:04→13:00)
[2023-05-16] MEDS: pantoprazole 40mg Tablet.DR PO SCH (08:16)
[2023-05-16] MEDS: mupirocin 2% nasal ointment 1gm UD NS SCH (08:17)
[2023-05-16] MEDS: sennosides/docusate sodium tablet PO SCH ×2 (08:18→20:25)
[2023-05-16] MEDS: aspirin 81mg tab.chew PO SCH (08:18)
[2023-05-16] MEDS: metoprolol tartrate 12.5mg (1/2 tablet) PO SCH ×2 (08:18→20:30)
[2023-05-16] MEDS: insulin glargine (Lantus) pen - multi-dose SQ SCH (08:21)
[2023-05-16] MEDS: insulin Lispro (HumaLOG) vial - multi-dose SQ PRN ×3 (09:13→19:29)
[2023-05-16] MEDS: ferrous sulfate ER tablet 140 MG TABLET.ER PO SCH ×2 (10:13→20:27)
[2023-05-16] MEDS: folic acid 1mg tablet PO SCH (10:13)
[2023-05-16] MEDS: furosemide 20 MG/2 ML vial IV SCH ×3 (10:14→20:26)
[2023-05-16] MEDS: nitroGLYCERIN-Tridil 50MG/D5W 250 ML IV SCH (13:00)
[2023-05-16] MEDS: sodium chloride 0.45% 1,000 ML IV SCH (14:08)
[2023-05-16] MEDS: potassium Cl 20 mEq SR tablet PO SCH (20:25)
[2023-05-16] MEDS: polyethylene glycol 3350 17gm powd pack PO SCH (20:25)
[2023-05-16] MEDS: atorvastatin 10mg tablet PO SCH (20:25)
[2023-05-16] MEDS: lactobacillus rhamnosus 10,000 MMU CELLS/CAPSULE PO SCH (20:25)
[2023-05-16] MEDS: docusate sod 100mg capsule PO SCH (20:25)
[2023-05-17] VITALS (16 sets, daily range): BP systolic 120–162; BP diastolic 57–85; PULSE 71–83; RESP 14–22; TEMP 97.1; O2SAT 94–97
[2023-05-17] MEDS: HYDROcodone/acetaminophen 10/325mg tab PO PRN ×3 (01:45→20:28)
[2023-05-17 02:36] LABS: BASOPHILS # (AUTO) 0.1 X10'3 (0-0.2); BASOPHILS % (AUTO) 0.4 % (0-1); EOSINOPHILS # (AUTO) 0.1 X10'3 (0-0.9); EOSINOPHILS % (AUTO) 0.4 % (0-6); HEMATOCRIT 29.1 % (42.0-52.0); HEMOGLOBIN 9.5 g/dl (14.0-17.9); LYMPHOCYTES # (AUTO) 1.7 X10'3 (1.1-4.8); LYMPHOCYTES % (AUTO) 12.4 % (21-51); MEAN CORPUSCULAR HGB CONC 32.5 g/dL (33.0-36.5); MEAN PLATELET VOLUME 8.2 FL (7.4-10.4); MONOCYTES # (AUTO) 2.4 X10'3 (0-0.9); MONOCYTES % (AUTO) 16.9 % (2-12); NEUTROPHILS # (AUTO) 9.8 X10'3 (1.8-7.7); NEUTROPHILS % (AUTO) 69.9 % (42-75); PLATELET COUNT 150 X10'3 (140-440); RED BLOOD COUNT 3.51 X10'6 (4.70-6.10); RED CELL DISTRIBUTION WIDTH 13.8 % (11.5-14.5)
[2023-05-17 02:49] LABS: ALBUMIN 3.1 G/DL (3.4-5.0); ANION GAP 7 (8-16); BLOOD UREA NITROGEN 14 MG/DL (7-18); BUN/CREATININE RATIO 22.2 (10.0-20.0); CALCIUM 8.5 MG/DL (8.5-10.1); CHLORIDE 104 MMOL/L (99-107); CREATININE 0.63 MG/DL (0.60-1.10); GLUCOSE 141 MG/DL (70-104); MAGNESIUM 2.2 MG/DL (1.5-2.4); PHOSPHORUS 2.7 MG/DL (2.3-4.5); POTASSIUM 4.1 MMOL/L (3.5-5.1); SODIUM 136 MMOL/L (135-145); TOTAL CARBON DIOXIDE 25.4 MMOL/L (24-32); eCRCL 137 ML/MIN; eGFR > 90 ML/MIN
[2023-05-17 03:36] LABS: TOTAL CELLS COUNTED 100
[2023-05-17 03:37] LABS: PLATELET ESTIMATE NORMAL
[2023-05-17] MEDS: NORepinephrine 8mg/ 250ml NS 250 ML IV SCH (04:07)
[2023-05-17] MEDS: Insulin Reg/NS 100units/100mL 100 ML IV SCH (06:55)
[2023-05-17] MEDS: ferrous sulfate ER tablet 140 MG TABLET.ER PO SCH (08:00)
[2023-05-17] MEDS: sennosides/docusate sodium tablet PO SCH ×2 (08:48→20:25)
[2023-05-17] MEDS: heparin, porcine 5000 units/ml vial SQ SCH ×3 (08:48→16:00)
[2023-05-17] MEDS: pantoprazole 40mg Tablet.DR PO SCH (08:48)
[2023-05-17] MEDS: aspirin 81mg tab.chew PO SCH (08:48)
[2023-05-17] MEDS: docusate sod 100mg capsule PO SCH ×2 (08:48→20:25)
[2023-05-17] MEDS: potassium Cl 20 mEq SR tablet PO SCH ×2 (08:48→20:00)
[2023-05-17] MEDS: lactobacillus rhamnosus 10,000 MMU CELLS/CAPSULE PO SCH ×2 (08:49→20:24)
[2023-05-17] MEDS: folic acid 1mg tablet PO SCH (08:49)
[2023-05-17] MEDS: metoprolol tartrate 25mg tablet PO SCH ×3 (08:50→21:00)
[2023-05-17 08:51] LABS: ACT @ 1.70 U 245 SEC (193-297); ACT @ 2.84 U 346 SEC (260-420); BASELINE ACT 138 SEC (101-148)
[2023-05-17] MEDS: insulin glargine (Lantus) pen - multi-dose SQ SCH (08:54)
[2023-05-17] MEDS: insulin Lispro (HumaLOG) vial - multi-dose SQ PRN ×2 (08:55→14:33)
[2023-05-17] MEDS: furosemide 20MG tablet PO SCH ×2 (08:58→20:24)
[2023-05-17 12:09] LABS: ABG PH 7.364 (7.340-7.440)
[2023-05-17 12:10] LABS: ABG BASE EXCESS -1.8 mmol/L (-2.0-2.0); ABG HCO3 23.6 mmol/L (22.0-26.0); ABG OXYGEN SATURATION 98.5 % (94-97); ABG PCO2 42.4 mmHg (35.0-48.0); CL (ABG) 103 mmol/L (99-107); FCOHb 0.7 % (0.0-3.9); FHHb 1.5 % (0.0-5.0); FMetHb 0.3 % (0.0-1.5); FO2Hb 97.5 % (94-97); GLUCOSE (ABG) 191 mg/dl (70-104); IONIZED CA (ABG) 1.19 mmol/L (1.10-1.30); K (ABG) 4.2 mmol/L (3.5-5.1); TOTAL HEMOGLOBIN 15.7 G/dl (14.0-17.9)
[2023-05-17] MEDS: JUVEN Shake w/Arg/Glut/Ca2+Bmb (Juven 19.3gm) pkt 240ml PO SCH ×2 (12:30→18:10)
[2023-05-17] MEDS: atorvastatin 10mg tablet PO SCH ×2 (20:00→20:25)
[2023-05-17] MEDS: FERROUS SULFATE 142 MG TABLET.ER (45mg elemental) PO SCH (20:00)
[2023-05-17] MEDS: nystatin 15 GM powder TP SCH (20:29)
[2023-05-17] MEDS: polyethylene glycol 3350 17gm powd pack PO SCH ×2 (21:00→22:53)
[2023-05-18] VITALS: BP 148/58; PULSE 79; RESP 16; TEMP 96.7; O2SAT 96
[2023-05-18] MEDS: HYDROcodone/acetaminophen 10/325mg tab PO PRN ×2 (00:19→19:32)
[2023-05-18 06:00] VITALS: BP 139/87; PULSE 84; RESP 22; TEMP 97.8; O2SAT 95
[2023-05-18 07:36] LABS: BASOPHILS % (AUTO) 0.4 % (0-1); EOSINOPHILS # (AUTO) 0.4 X10'3 (0-0.9); EOSINOPHILS % (AUTO) 3.7 % (0-6); HEMATOCRIT 29.2 % (42.0-52.0); HEMOGLOBIN 9.9 g/dl (14.0-17.9); LYMPHOCYTES # (AUTO) 1.9 X10'3 (1.1-4.8); LYMPHOCYTES % (AUTO) 18.8 % (21-51); MEAN CORPUSCULAR HEMOGLOBIN 27.6 PG (27.0-31.0); MEAN CORPUSCULAR HGB CONC 33.8 g/dL (33.0-36.5); MEAN CORPUSCULAR VOLUME 81.6 FL (78-98); MEAN PLATELET VOLUME 7.8 FL (7.4-10.4); MONOCYTES # (AUTO) 1.5 X10'3 (0-0.9); MONOCYTES % (AUTO) 14.7 % (2-12); NEUTROPHILS # (AUTO) 6.3 X10'3 (1.8-7.7); NEUTROPHILS % (AUTO) 62.4 % (42-75); PLATELET COUNT 197 X10'3 (140-440); RED BLOOD COUNT 3.58 X10'6 (4.70-6.10); RED CELL DISTRIBUTION WIDTH 13.4 % (11.5-14.5)
[2023-05-18 07:58] LABS: ALANINE AMINOTRANSFERASE 28 U/L (12-78); ALBUMIN 2.7 G/DL (3.4-5.0); ALBUMIN/GLOBULIN RATIO 0.8 (1.1-1.5); ALKALINE PHOSPHATASE 82 IU/L (46-116); ANION GAP 7 (8-16); ASPARTATE AMINO TRANSFERASE 30 U/L (10-37); BILIRUBIN,TOTAL 0.4 MG/DL (0.1-1.0); BLOOD UREA NITROGEN 13 MG/DL (7-18); BUN/CREATININE RATIO 18.6 (10.0-20.0); CALCIUM 8.5 MG/DL (8.5-10.1); CHLORIDE 103 MMOL/L (99-107); GLUCOSE 135 MG/DL (70-104); MAGNESIUM 1.9 MG/DL (1.5-2.4); PHOSPHORUS 3.3 MG/DL (2.3-4.5); SODIUM 136 MMOL/L (135-145); TOTAL CARBON DIOXIDE 26.5 MMOL/L (24-32); TOTAL PROTEIN 6.3 G/DL (6.4-8.2); eCRCL 123 ML/MIN; eGFR > 90 ML/MIN
[2023-05-18 08:00] VITALS: RESP 22; O2SAT 95
[2023-05-18] MEDS: insulin glargine (Lantus) pen - multi-dose SQ SCH (08:00)
[2023-05-18] MEDS: nystatin 15 GM powder TP SCH ×2 (08:00→22:27)
[2023-05-18] MEDS ORDERED: magnesium hydroxide 30ml (MOM) UD suspension PO PRN (08:40)
[2023-05-18] MEDS: aspirin 81mg tab.chew PO SCH (08:51)
[2023-05-18] MEDS: furosemide 20MG tablet PO SCH ×2 (08:51→22:24)
[2023-05-18] MEDS: sennosides/docusate sodium tablet PO SCH ×2 (08:51→20:00)
[2023-05-18] MEDS: pantoprazole 40mg Tablet.DR PO SCH (08:52)
[2023-05-18] MEDS: potassium Cl 20 mEq SR tablet PO SCH ×2 (08:52→22:26)
[2023-05-18] MEDS: docusate sod 100mg capsule PO SCH ×2 (08:52→22:24)
[2023-05-18] MEDS: FERROUS SULFATE 142 MG TABLET.ER (45mg elemental) PO SCH ×2 (08:52→22:27)
[2023-05-18] MEDS: lactobacillus rhamnosus 10,000 MMU CELLS/CAPSULE PO SCH ×2 (08:53→22:24)
[2023-05-18] MEDS: metoprolol tartrate 25mg tablet PO SCH (08:53)
[2023-05-18] MEDS: folic acid 1mg tablet PO SCH (08:53)
[2023-05-18] MEDS: heparin, porcine 5000 units/ml vial SQ SCH ×3 (08:54→16:24)
[2023-05-18] MEDS: insulin Lispro (HumaLOG) vial - multi-dose SQ PRN ×2 (09:39→19:31)
[2023-05-18] MEDS ORDERED: metoprolol tartrate 12.5mg (1/2 tablet) PO ONE (10:15)
[2023-05-18] MEDS: lactulose 20gm/30ml cup PO SCH ×3 (10:20→21:00)
[2023-05-18 11:00] VITALS: BP 144/76; PULSE 68; RESP 11; TEMP 97.7; O2SAT 97
[2023-05-18] MEDS: JUVEN Shake w/Arg/Glut/Ca2+Bmb (Juven 19.3gm) pkt 240ml PO SCH ×2 (12:30→17:30)
[2023-05-18 15:00] VITALS: BP 161/87; PULSE 76; RESP 20; TEMP 97.7; O2SAT 98
[2023-05-18 20:00] VITALS: RESP 18; O2SAT 95
[2023-05-18] MEDS ORDERED: psyllium seed 5.8 gm packet (sugar-free) PO SCH (21:00)
[2023-05-18] MEDS: metoprolol tartrate 50mg tablet PO SCH (22:26)
[2023-05-19] MEDS: heparin, porcine 5000 units/ml vial SQ SCH ×2 (00:20→08:07)
[2023-05-19 06:00] VITALS: BP 163/94; PULSE 78; RESP 20; TEMP 99.2; O2SAT 97
[2023-05-19] MEDS ORDERED: clopidogrel 75mg tablet PO SCH (08:00)
[2023-05-19] MEDS: lactulose 20gm/30ml cup PO SCH ×2 (08:00→13:00)
[2023-05-19] MEDS: folic acid 1mg tablet PO SCH (08:02)
[2023-05-19] MEDS: FERROUS SULFATE 142 MG TABLET.ER (45mg elemental) PO SCH (08:02)
[2023-05-19] MEDS: docusate sod 100mg capsule PO SCH (08:03)
[2023-05-19] MEDS: lactobacillus rhamnosus 10,000 MMU CELLS/CAPSULE PO SCH (08:03)
[2023-05-19] MEDS: pantoprazole 40mg Tablet.DR PO SCH (08:04)
[2023-05-19] MEDS: sennosides/docusate sodium tablet PO SCH (08:05)
[2023-05-19] MEDS: metoprolol tartrate 50mg tablet PO SCH (08:05)
[2023-05-19] MEDS: furosemide 20MG tablet PO SCH (08:06)
[2023-05-19] MEDS: nystatin 15 GM powder TP SCH (08:06)
[2023-05-19 08:13] LABS: BASOPHILS # (AUTO) 0.1 X10'3 (0-0.2); BASOPHILS % (AUTO) 0.6 % (0-1); EOSINOPHILS # (AUTO) 0.6 X10'3 (0-0.9); EOSINOPHILS % (AUTO) 5.5 % (0-6); HEMATOCRIT 31.7 % (42.0-52.0); HEMOGLOBIN 10.9 g/dl (14.0-17.9); LYMPHOCYTES # (AUTO) 2.1 X10'3 (1.1-4.8); LYMPHOCYTES % (AUTO) 20.7 % (21-51); MEAN CORPUSCULAR HEMOGLOBIN 27.9 PG (27.0-31.0); MEAN CORPUSCULAR HGB CONC 34.2 g/dL (33.0-36.5); MEAN CORPUSCULAR VOLUME 81.6 FL (78-98); MEAN PLATELET VOLUME 7.3 FL (7.4-10.4); MONOCYTES # (AUTO) 1.4 X10'3 (0-0.9); MONOCYTES % (AUTO) 13.6 % (2-12); NEUTROPHILS # (AUTO) 6.2 X10'3 (1.8-7.7); NEUTROPHILS % (AUTO) 59.6 % (42-75); PLATELET COUNT 293 X10'3 (140-440); RED BLOOD COUNT 3.89 X10'6 (4.70-6.10); RED CELL DISTRIBUTION WIDTH 13.2 % (11.5-14.5); WHITE BLOOD COUNT 10.4 X10'3 (4.5-11.0)
[2023-05-19] MEDS: insulin glargine (Lantus) pen - multi-dose SQ SCH (08:14)
[2023-05-19] MEDS: potassium Cl 20 mEq SR tablet PO SCH (08:14)
[2023-05-19] MEDS: aspirin 81mg tab.chew PO SCH (08:16)
[2023-05-19 08:25] VITALS: RESP 20; O2SAT 97
[2023-05-19] MEDS ORDERED: lisinopril 5mg tablet PO SCH (09:45)
[2023-05-19 10:08] LABS: ALANINE AMINOTRANSFERASE 41 U/L (12-78); ALBUMIN 2.7 G/DL (3.4-5.0); ALBUMIN/GLOBULIN RATIO 0.7 (1.1-1.5); ALKALINE PHOSPHATASE 104 IU/L (46-116); ANION GAP 11 (8-16); ASPARTATE AMINO TRANSFERASE 23 U/L (10-37); BILIRUBIN,TOTAL 0.5 MG/DL (0.1-1.0); BLOOD UREA NITROGEN 11 MG/DL (7-18); BUN/CREATININE RATIO 16.7 (10.0-20.0); CALCIUM 8.8 MG/DL (8.5-10.1); CHLORIDE 103 MMOL/L (99-107); CREATININE 0.66 MG/DL (0.60-1.10); GLUCOSE 126 MG/DL (70-104); MAGNESIUM 1.9 MG/DL (1.5-2.4); PHOSPHORUS 4.6 MG/DL (2.3-4.5); POTASSIUM 4.1 MMOL/L (3.5-5.1); SODIUM 140 MMOL/L (135-145); TOTAL CARBON DIOXIDE 26.5 MMOL/L (24-32); TOTAL PROTEIN 6.7 G/DL (6.4-8.2); eCRCL 131 ML/MIN; eGFR > 90 ML/MIN
[2023-05-19 11:00] VITALS: BP 132/72; PULSE 74; RESP 20; TEMP 97.2; O2SAT 98
[2023-05-19] MEDS ORDERED: LISI5TAB22 PO (11:01)
[2023-05-19] MEDS ORDERED: PANT40TA54 PO (11:01)
[2023-05-19] MEDS ORDERED: ASPI81TA53 PO (11:01)
[2023-05-19] MEDS ORDERED: HYDR-3964 PO (11:01)
[2023-05-19] MEDS ORDERED: POTA8CAP20 PO (11:01)
[2023-05-19] MEDS ORDERED: FURO40TA4 PO (11:01)
[2023-05-19] MEDS ORDERED: LOP25T PO (11:01)
[2023-05-19] MEDS ORDERED: CLOP75TA34 PO (11:01)
[2023-05-19] MEDS ORDERED: FERR142T13 PO (11:01)
[2023-05-19] MEDS ORDERED: ATOR10TA PO (11:01)
[2023-05-19] MEDS ORDERED: INSU100I75 SQ ×2 (11:22)
[2023-05-19] MEDS ORDERED: NEED-136 SUBCUT (11:22)
[2023-05-19] MEDS ORDERED: INSU100I61 SQ ×2 (11:22)
[2023-05-19] MEDS: JUVEN Shake w/Arg/Glut/Ca2+Bmb (Juven 19.3gm) pkt 240ml PO SCH (12:30)
[2023-05-19] MEDS ORDERED: metoprolol tartrate 25mg tablet PO SCH (20:00)
[2023-05-20] MEDS ORDERED: potassium chloride 10mEq ER tablet PO SCH (08:00)
[2023-05-20] MEDS ORDERED: furosemide 40mg tablet PO SCH (08:00)
[2023-05-20] MEDS ORDERED: GLYB5TAB7 PO (15:11)
[2023-05-20] MEDS ORDERED: METF-1157 PO (15:11)
== END 2023-05-19 13:25 | disposition home or self-care (01) | DRG 233 ==
LOC: ER 13:07 → ED HOLD 17:56 → CICU 2S 19:51 → PCU 3S 05-17 12:50
PROVIDERS: ADMIT Family Medicine; ATTEND Family Medicine
PROC: 4A023N7 Measurement of Cardiac Sampling and Pressure, Left Heart, Percutaneous Approach (ICD-10-PCS; 2023-05-12)
PROC: 5A02210 Assistance with Cardiac Output using Balloon Pump, Continuous (ICD-10-PCS; 2023-05-12)
PROC: B2111ZZ Fluoroscopy of Multiple Coronary Arteries using Low Osmolar Contrast (ICD-10-PCS; 2023-05-12)
PROC: B2151ZZ Fluoroscopy of Left Heart using Low Osmolar Contrast (ICD-10-PCS; 2023-05-12)
PROC: 02100Z9 Bypass Coronary Artery, One Artery from Left Internal Mammary, Open Approach (ICD-10-PCS; 2023-05-14)
PROC: 021209W Bypass Coronary Artery, Three Arteries from Aorta with Autologous Venous Tissue, Open Approach (ICD-10-PCS; 2023-05-14)
PROC: 06BP4ZZ Excision of Right Saphenous Vein, Percutaneous Endoscopic Approach (ICD-10-PCS; 2023-05-14)
PROC: 5A1221Z Performance of Cardiac Output, Continuous (ICD-10-PCS; 2023-05-14)
PROC: B24BZZ4 Ultrasonography of Heart with Aorta, Transesophageal (ICD-10-PCS; 2023-05-14)
PROC: 05HY33Z Insertion of Infusion Device into Upper Vein, Percutaneous Approach (ICD-10-PCS; 2023-05-14)
PROC: 02100Z8 Bypass Coronary Artery, One Artery from Right Internal Mammary, Open Approach (ICD-10-PCS; principal; 2023-05-14 07:46)
DX: I21.4 Non-ST elevation (NSTEMI) myocardial infarction (principal); J96.01 Acute respiratory failure with hypoxia; I16.1 Hypertensive emergency; Z68.41 Body mass index [BMI] 40.0-44.9, adult; E11.9 Type 2 diabetes mellitus without complications; I25.110 Atherosclerotic heart disease of native coronary artery with unstable angina pectoris; D64.9 Anemia, unspecified; E78.5 Hyperlipidemia, unspecified; E87.70 Fluid overload, unspecified; I10 Essential (primary) hypertension; E66.01 Morbid (severe) obesity due to excess calories; Z82.3 Family history of stroke; Z82.0 Family history of epilepsy and other diseases of the nervous system; Z82.49 Family history of ischemic heart disease and other diseases of the circulatory system; Z90.49 Acquired absence of other specified parts of digestive tract
CPT/HCPCS: 33967; 93306; 93312; 93325; 93458; 99285; Z7506; Z7508; 36415; 36600; 71045; 80048; 80053; 80061; 82330; 82435; 82803; 82947; 82948; 83036; 83735; 83880; 84100; 84132; 84295; 84484; 85007; 85018; 85025; 85027; 85347; 85610; 85730; 86885; 86900; 86901; 86920; 87070; 87081; 93005; 93880; 93970; 94002; 94003; 94760; 97110; 97116; 97161; 97530; 99152; 99153; A4333; A4615; A4618; A6213; A6258; A6402; A6446; A6449; A7000; C1751; C1758; G0378; J0171; J0690; J1170; J1200; J1644; J1815; J1940; J2150; J2250; J2270; J2405; J2440; J2704; J2930; J3010; J3370; J3475; J3480; J3490; J7030; J7040; J7050; J7120; P9045; P9047; Q9967; S0020